=== PATIENT | female | born 1955 | race Caucasian/White ===

== ENCOUNTER 2023-03-13 12:22 | Emergency (ER) | payer OTHER ==
[~2023-03-13] VITALS: Wt 54.0 kg
== END 2023-03-13 13:44 | disposition home or self-care (01) ==
LOC: ED 12:22
DX: F41.0 Panic disorder [episodic paroxysmal anxiety] (principal); F12.90 Cannabis use, unspecified, uncomplicated; Z88.8 Allergy status to other drugs, medicaments and biological substances; Z98.51 Tubal ligation status; Z95.5 Presence of coronary angioplasty implant and graft; Z98.890 Other specified postprocedural states